=== PATIENT | male | born 1980 | race Caucasian/White ===

== ENCOUNTER 2020-11-27 07:39 | Outpatient (CLI) | payer OTHER, SELFPAY ==
--- NOTE | ~2020-11-27 | US_ITS ---
US abdomen limited DATE: 11/27/2020 08:40 INDICATION: Fatty change of the liver TECHNIQUE: Real-time imaging of liver, pancreas, gallbladder COMPARISON: 09/08/2018 CT abdomen pelvis 08/01/2018 right upper quadrant abdominal ultrasound FINDINGS: There is an approximately 18 x 25 mm indeterminate hypoechoic lesion of the posterior right hepatic dome. Some peripheral contrast puddling is noted on the 09/08/2018 CT abdomen pelvis examina tion, suggesting possible cavernous hemangioma. However, the sonographic features are not classic for cavernous hemangioma, which is usually hyperechoic. Consider repeat CT abdomen pelvis examination wi th IV contrast material. The liver and pancreas are otherwise unremarkable. No gallstones or gallbladder wall thickening or pe richolecystic fluid. Negative sonographic Hand's sign. The common bile duct measures 4.8 mm, within normal range. IMPRESSION: Indeterminate hepatic dome lesion; consider CT abdomen pelvis examination Reviewed, dictated and finalized at [facility]. Reviewed, dictated and finalized at [facility] [facility] IMPRESSION: Indeterminate hepatic dome lesion; consider CT abdomen pelvis exami nation
== END 2020-11-27 07:40 | disposition home or self-care (01) ==
PROVIDERS: PCP Family Medicine; Visit Provider Nurse Practitioner Family
DX: K76.0 Fatty (change of) liver, not elsewhere classified (principal)
CPT/HCPCS: 76705